=== PATIENT | female | born 1965 | race Caucasian/White ===

== ENCOUNTER 2017-08-17 10:30 | Inpatient (IN) | payer OTHER ==
[~2017-08-17] VITALS: Ht 167.6 cm; Wt 75.0 kg
[~2017-08-17 10:30] MED LIST: CINN500T PO; FLAXOIL2 PO; GLUCTAB7 PO; OMEGCAP2 PO
[2017-08-17 11:30] LABS: BASO % 0.4 %; BASO ABS # 0.03 K/uL (0-0.2); COMPLETE YES; EOS % 1.7 %; HEMATOCRIT 43.3 % (37-47); IG% 0.2 %; LYMPH % 13.4 %; LYMPH ABS # 1.14 K/uL (1.2-3.4); MEAN CELL VOLUME 99.8 fL (80-100); MEAN CORPUSCULAR HEMOGLOBIN 33.6 pg (25-34); MEAN CORPUSCULAR HGB CONC 33.7 g/dl (32-36); MEAN PLATELET VOLUME 9.1 fL (7.4-10.4); MONO % 8.5 %; NEUT % 75.8 %; PLATELET COUNT 264 K/uL (130-400); RED BLOOD COUNT 4.34 M/uL (4.2-5.4); WHITE BLOOD COUNT 8.48 K/uL (4.8-10.8)
[2017-08-17] MEDS ORDERED: AMOX875T PO (11:43)
[2017-08-17] MEDS ORDERED: SPIR25TA PO (11:43)
[2017-08-17] MEDS ORDERED: MONT1TAB3 PO (11:43)
[2017-08-17 11:51] LABS: BUN/CREATININE RATIO 18.2 (10-20); CALCIUM 8.7 mg/dl (8.5-10.1); CREATININE 0.73 mg/dl (0.60-1.20); POTASSIUM 4.3 mmol/L (3.5-5.1)
[2017-08-17] MEDS ORDERED: MoRPHine SULFATE 2 MG/ML CARP IV PRN (12:15)
[2017-08-17] MEDS ORDERED: HYDROCODONE/ACETAMOPHEN 5/325MG TAB PO PRN ×2 (12:15)
[2017-08-17] MEDS ORDERED: CLINDAMYCIN IV 900 MG in DEXTROSE 5% 100ML 100 ML IV ONE (12:15)
[2017-08-17] MEDS ORDERED: ONDANSETRON INJ 2 MG/ML 2 ML VIAL IV PRN (12:15)
[2017-08-17] MEDS ORDERED: DEXAMETHASONE SOD INJ 10 MG/ML VIAL IV ONE (12:15)
--- NOTE | 2017-08-17 12:52 | HISTORY & PHYSICAL EXAMINATION ---
DATE OF ADMISSION: 08/17/2017 I have been asked by the [facility] Emergency Room to evaluate this patient with right-sided nasal cellulitis and possible nasal abscess. HISTORY OF PRESENT ILLNESS: The patient is a pleasant 52-year-old female with a 3-day history of a worsening right nasal cellulitis. This initially presented with a bump on the inside of her nose that she picked and she subsequently developed increased pain, redness, and swelling both on the inside and outside of her nose. She presented to her primary care physician, Dr. Ileana Kwok, yesterday and was placed on Augmentin. She was instructed to come to her office today if her symptoms did not improve. In fact, they worsened and she presented to her office, who stated that she needed to come to the Emergency Room. I have been asked to evaluate this patient and see whether or not she has an abscess. The patient has no prior history of multiple abscesses. ALLERGIES: BACTRIM. HOME MEDICATIONS: Augmentin, spironolactone, montelukast, Pataday, and Restasis. PAST MEDICAL HISTORY: 1. Allergic rhinitis. 2. Sjogren syndrome. 3. Hypertension. PAST SURGICAL HISTORY: 1. Status post right hand surgery. 2. Status post wisdom tooth extraction. FAMILY HISTORY: Noncontributory. No bleeding disorders or malignant hyperthermia. SOCIAL HISTORY: The patient is and has 2 children. 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 She is a nonsmoker. She drinks alcohol socially. There is no illicit drug use. REVIEW OF SYSTEMS: The patient has severe right nasal pain, which is worsening. She has some increased congestion and nasal secretions. She denies any fevers, chills, night sweats, or unexplained weight loss. She denies any lightheadedness, shortness of breath or chest pain. PHYSICAL EXAMINATION: GENERAL: This is a middle-aged white female, who has obvious erythema overlying her external nose on the right hand side with some mild right periorbital erythema and swelling. HEENT: External auditory canals and tympanic membranes are clear bilaterally. Extraocular movements are intact. Pupils are equal, round and reactive to light and accommodation. Intranasally, the patient has an exquisitely tender right nasal sidewall and there is a mild bulge intranasally as well as externally. Oral cavity and oropharyngeal examination reveals no mucosal lesions or masses. There is no trismus. NECK: Reveals no lymphadenopathy, thyroid nodularity or masses. NEUROLOGIC: Cranial nerves II through XII are grossly intact. LABORATORY EXAMINATION: Shows a normal white blood cell count of 8.48. The rest of her CBC and chemistry profile was unremarkable. After verbally obtaining informed consent, the right nasal cavity was sterilized with alcohol wipe. An 18-gauge needle on a 3-mL syringe was used to try to aspirate any potential abscess in the right nasal sidewall. There is no pus encountered. IMPRESSION AND RECOMMENDATIONS: A 52-year-old female with moderately severe right nasal cellulitis. I think it is warranted to admit this patient for IV antibiotics and IV steroids given her lack of improvement on oral antibiotics. I have placed her on clindamycin 900 mg IV q. 8 hours and Decadron 10 mg IV q. 8 hours. We will monitor her closely. Warm compresses were ordered. If the patient worsens, then I might get a CT scan with IV contrast to rule out any abscess that I may have missed. I do believe that she will improve on IV therapy. The risk of C. diff colitis was discussed with the patient. She is to let us know if she develops any severe crampy and/or bloody diarrhea.
[2017-08-17 13:15] VITALS: BP 141/89; PULSE 73; TEMP 36.5; O2SAT 98; Ht 167.6 cm; Wt 75.0 kg
[2017-08-17] MEDS: LACTATED RINGER'S 1000ML 1,000 ML IV SCH (13:59)
[2017-08-17] MEDS ORDERED: INFLUENZA ADMINISTRATION CHARGE ONE (15:00)
[2017-08-17] MEDS ORDERED: INFLUENZA VIRUS QUAD VACCINE 0.5 ML SYR IM. ONE (15:00)
[2017-08-17 15:15] VITALS: BP 125/84; PULSE 80; TEMP 36.6
[2017-08-17 19:30] VITALS: O2SAT 95
[2017-08-17] MEDS: SPIRONOLACTONE 25 MG TAB PO SCH (21:33)
[2017-08-17] MEDS: CLINDAMYCIN IV 900 MG in DEXTROSE 5% 100ML 100 ML IV SCH (21:35)
[2017-08-17] MEDS: DEXAMETHASONE INJ 10 MG in SYRINGE 0 ML IV SCH (21:36)
[2017-08-17 23:06] VITALS: BP 123/82; PULSE 71; TEMP 36.7
[2017-08-18] MEDS: LACTATED RINGER'S 1000ML 1,000 ML IV SCH (00:12)
[2017-08-18] MEDS: CLINDAMYCIN IV 900 MG in DEXTROSE 5% 100ML 100 ML IV SCH (05:50)
[2017-08-18] MEDS: DEXAMETHASONE INJ 10 MG in SYRINGE 0 ML IV SCH (05:50)
[2017-08-18 07:11] VITALS: BP 115/74; PULSE 68; TEMP 36.7
--- NOTE | 2017-08-18 08:35 | Discharge Instructions ---
Discharge Instructions Date of Service Aug 18, 2017. Admission Reason for Admission: Cellulitis Of The Nose Discharge Discharge Diagnosis / Problem: SAME Discharge Goals Goal(s): Therapeutic intervention Activity Recommendations Activity Limitations: resume your previous activity . Current Hospital Diet Patient's current hospital diet: Regular Diet Discharge Diet Recommended Diet: Regular Diet Pending Studies Studies pending at discharge: no Medical Emergencies . Who to Call and When: Medical Emergencies: If at any time you feel your situation is an emergency, please call 911 immediately. . Non-Emergent Contact Non-Emergency issues call your: Surgeon . . "Provider Documentation" section prepared by Chris Kc. . VTE Core Measure Inpt VTE Proph given/why not?: SCD's
[2017-08-18] MEDS: SPIRONOLACTONE 25 MG TAB PO SCH (08:51)
[2017-08-18 08:53] VITALS: BP 115/74; PULSE 68; TEMP 36.7; O2SAT 95
[2017-08-18] MEDS ORDERED: MONTELUKAST SOD 10 MG TAB PO SCH (09:00)
--- NOTE | 2017-08-18 09:00 | ENT PROGRESS NOTE ---
DATE: 08/18/2017 SUBJECTIVE: The patient reports that she is "75%" better after being on IV clindamycin and Decadron. She has much less pain in her nasal region. She has near resolution of her right periorbital and facial swelling. OBJECTIVE: The patient is afebrile and vital signs are stable. On examination, she has less erythema overlying her right nasal dorsum and tip. There is less tenderness to palpation. Intranasally, there is still some tenderness, but there is less swelling on the lateral nasal sidewall compared to yesterday. There is no fluctuance identified. ASSESSMENT AND PLAN: A 52-year-old female with nasal cellulitis, which has improved on IV clindamycin and Decadron. She has been afebrile throughout her hospital course. I will discharge her to home on clindamycin 300 mg 4 times daily for 10 days as well as a prednisone taper 30 mg twice daily for 2 days, then 20 mg twice daily for 2 days, then 10 mg twice daily for 2 days, and then 10 mg daily for 2 days. I would like her to call my office tomorrow for followup appointment within 1-2 weeks.
--- NOTE | 2017-08-18 10:30 | DISCHARGE SUMMARY ---
ADMISSION DIAGNOSIS: Nasal cellulitis. DISCHARGE DIAGNOSIS: Same. HOSPITAL COURSE: The patient is a 52-year-old female who I admitted yesterday from the Emergency Room for nasal cellulitis that progressed despite being on Augmentin 875 mg twice daily. She was given IV clindamycin and IV Decadron and clinically improved over 24 hours. Throughout her hospital stay, she was afebrile. On hospital day #2, she stated that she was "75%" better and her examination was markedly improved. She was discharged to home on clindamycin 300 mg 4 times daily for 10 days, prednisone 30 mg p.o. b.i.d. for 2 days followed by 20 mg p.o. b.i.d. for 2 days followed by 10 mg p.o. b.i.d. for 2 days followed by 10 mg daily for 2 days. I gave her a prescription for fluconazole 150 mg one time and may repeat in 3 days if necessary for vaginal yeast infections which she tends to get on longterm antibiotic therapy. She is to call my office if she has any worsening clinical symptomatology. She should not take her previously prescribed Augmentin but only take the clindamycin that I prescribed. The potential side effect of Clostridium difficile colitis was discussed with the patient and she should call my office if she develops any severe, crampy, and/or bloody diarrhea.
--- NOTE | 2017-08-21 13:59 | EMERGENCY ROOM VISIT NOTE ---
History First contact with patient: 10:59 Chief Complaint: FACIAL PAIN/INJURY Stated Complaint: CELLULITIS OF THE NOSE History of Present Illness The patient is a 52 year old white female who presents to the Emergency Room with complaints of right-sided nasal pain, redness, and swelling. Symptoms started on . She felt a tender nodule inside her nose. She states she did pick at it. Yesterday the pain and redness increased. She was seen by her PCP and was placed on Augmentin. She was told to come back if her symptoms. This morning she noticed puffiness along her right cheek and increased redness on her nose. She was seen by her PCP again and sent to the ED for further evaluation. Patient denies any prior history of nasal abscess. No change in vision at this time. No fevers or chills. She has had 3 doses of Augmentin without improvement. She denies any nasal drainage. Review of Systems REVIEW OF SYSTEM: HEENT: No dizziness, visual problems, hearing loss, or tinnitus. There is no difficulty swallowing and no oral lesions are present. PULMONARY: No cough, shortness of breath, sputum production or hemoptysis. CARDIOVASCULAR: No chest pain, palpitations, shortness of breath or peripheral edema. GASTROINTESTINAL: No diarrhea, constipation, nausea, vomiting, or abdominal pain. GENITOURINARY: No dysuria, frequency, urgency or nocturia. NEUROLOGIC: No weakness, muscle tenderness, epilepsy or history of neurological problems. MUSCULOSKELETAL: No history of joint tenderness/swelling. No history of arthritis or arthralgias. SKIN: No rashes or lesions. PSYCHIATRIC: No history of depression or mental illness. ENDOCRINE: No history of diabetes, thyroid disorders, or abnormal hair growth. Past Medical/Surgical History Medical Problems: (1) Asthma (2) Kidney stone (3) Nose cellulitis (4) Nose cellulitis Sjogren syndrome. Hypertension. PAST SURGICAL HISTORY: right hand surgery. wisdom tooth extraction. Family History FAMILY HISTORY: Noncontributory. Social History Smoking Status: Never Smoker Smokeless Tobacco Use: No Alcohol Use: occasionally Drug Use: none Marital Status: Housing Status: lives with family Occupation Status: employed Current/Historical Medications Scheduled Cinnamon (Cinnamon), 1 TAB PO DAILY Flaxseed (Linseed) (Flax Oil), 1 DOSE PO DAILY Oyoabqiamvo-Uhsxhyjwjpo-Ype C- (Glucosamine Chondroitin), 1 TAB PO DAILY Montelukast Sodium (Singulair), 10 MG PO DAILY [place]-3 Fatty Acids (Fish Oil), 1 CAP PO DAILY Spironolactone (Aldactone), 25 MG PO BID Allergies Coded Allergies: Sulfamethoxazole w/Trimethoprim (Verified Allergy, Intermediate, nausea, swelling, 08/17/17) Physical Exam Vital Signs Date Time Temp Pulse Resp B/P (MAP) Pulse Ox O2 Delivery O2 Flow Rate FiO2 08/17/17 11:02 36.7 69 16 145/106 97 Room Air Physical Exam Gen.: Well-developed, well-nourished, middle-aged white female, in obvious discomfort. No acute distress. Sitting on a bed. Alert and oriented. Skin:Warm and dry with good turgor. No rashes. No ecchymosis. She has mild edema present over the upper right cheek and lower eyelid. Visible erythema on her nose. Nose is also a little edematous. Nose is very tender to touch. Mild fullness under her right eyelid. The patient is not diaphoretic. No abrasions. HEENT: Normocephalic atraumatic. Eyes PERRLA, EOMI. No conjunctiva or scleral injection. Ears TMs intact bilaterally with good light reflexes. No erythema or bulging. No hemotympanum. Canals are patent. Nares patent bilaterally without turbinate enlargement. Clear nasal drainage. No epistaxis. She has a mass inside the right nares that appears to be an abscess. It is extremely tender to touch. Nose is also red, more so on the right side. Oropharynx without erythema or exudate. Uvula midline, oral mucosa moist. No lesions present. Lymphatics are palpated without anterior or posterior chain enlargement or tenderness. Heart: Heart RRR. No MGR. Peripheral pulses are 2+. Lungs: Lungs are clear to auscultation. No crackles rhonchi or wheezing. Good air movement. The patient is able to take a deep breath. Medical Decision & Procedures Laboratory Results 08/17/17 11:17 Red Blood Count 4.34, Mean Corpuscular Volume 99.8, Mean Corpuscular Hemoglobin 33.6, Mean Corpuscular Hemoglobin Concent 33.7, Mean Platelet Volume 9.1, Neutrophils (%) (Auto) 75.8, Lymphocytes (%) (Auto) 13.4, Monocytes (%) (Auto) 8.5, Eosinophils (%) (Auto) 1.7, Basophils (%) (Auto) 0.4, Neutrophils # (Auto) 6.43, Lymphocytes # (Auto) 1.14, Monocytes # (Auto) 0.72, Eosinophils # (Auto) 0.14, Basophils # (Auto) 0.03 08/17/17 11:17 Test 08/17/17 11:17 White Blood Count 8.48 K/uL (4.8-10.8) Red Blood Count 4.34 M/uL (4.2-5.4) Hemoglobin 14.6 g/dL (12.0-16.0) Hematocrit 43.3 % (37-47) Mean Corpuscular Volume 99.8 fL (80-100) Mean Corpuscular Hemoglobin 33.6 pg (25-34) Mean Corpuscular Hemoglobin Concent 33.7 g/dl (32-36) Platelet Count 264 K/uL (130-400) Mean Platelet Volume 9.1 fL (7.4-10.4) Neutrophils (%) (Auto) 75.8 % Lymphocytes (%) (Auto) 13.4 % Monocytes (%) (Auto) 8.5 % Eosinophils (%) (Auto) 1.7 % Basophils (%) (Auto) 0.4 % Neutrophils # (Auto) 6.43 K/uL (1.4-6.5) Lymphocytes # (Auto) 1.14 K/uL (1.2-3.4) Monocytes # (Auto) 0.72 K/uL (0.11-0.59) Eosinophils # (Auto) 0.14 K/uL (0-0.5) Basophils # (Auto) 0.03 K/uL (0-0.2) RDW Standard Deviation 47.6 fL (36.4-46.3) RDW Coefficient of Variation 13.0 % (11.5-14.5) Immature Granulocyte % (Auto) 0.2 % Immature Granulocyte # (Auto) 0.02 K/uL (0.00-0.02) Anion Gap 6.0 mmol/L (3-11) Est Creatinine Clear Calc Drug Dose 93.3 ml/min Estimated GFR () 109.7 Estimated GFR (Non- 94.7 BUN/Creatinine Ratio 18.2 (10-20) Calcium Level 8.7 mg/dl (8.5-10.1) Hepatitis C Antibody Screen NEG (NEG) CBC and PRP were obtained. They are unremarkable. Medications Administered Medications (Trade) Dose Ordered Sig/[place] Route Start Time Stop Time Status Last Admin Dose Admin Clindamycin Phosphate 900 mg/ Dextrose 106 ml @ 100 mls/hr NOW ONCE IV 08/17/17 12:15 08/17/17 13:18 DC 08/17/17 12:30 100 MLS/HR Dexamethasone Sodium Phosphate (Decadron Inj) 10 mg NOW ONCE IV 08/17/17 12:15 08/17/17 12:16 DC 08/17/17 12:20 10 MG Acetaminophen/ Hydrocodone Bitart ([place] 5/325 Tab) 1 tab Q4HWA PRN PO 08/17/17 12:15 08/18/17 09:46 DC 08/18/17 00:27 1 TAB Acetaminophen/ Hydrocodone Bitart ([place] 5/325 Tab) 2 tab Q4HWA PRN PO 08/17/17 12:15 08/18/17 09:46 DC 08/17/17 13:59 2 TAB Clindamycin 900 mg IV, Decadron 10 mg IV ED Course Patient and her were educated regarding today's findings. Conservative care measures were discussed. IV was established. Labs were obtained. I did contact Dr. Kc from ENT to discuss imaging. He elected to come into the ED and evaluate the patient himself before ordering any imaging. Please see his dictation for final management. He did admit the patient for observation. She has failed outpatient oral antibiotic treatment. She was started on clindamycin 900 mg IV and Decadron 10 mg IV per his request. She remained stable while in the ED. Medical Decision Possibility of nasal abscess, cellulitis, periorbital cellulitis, and contact dermatitis were considered among others. Impression Primary Impression: Nose cellulitis Departure Information Dispostion Admitted as an inpatient Condition FAIR Referrals Ileana Kwok M.D. (PCP) Forms HOME CARE DOCUMENTATION FORM, IMPORTANT VISIT INFORMATION Patient Instructions My [facility]
== END 2017-08-18 09:40 | disposition home or self-care (01) | DRG 156 ==
LOC: C.EDB 10:32 → C.MSW 12:22 → ENRESERV 12:45
DX: J34.0 Abscess, furuncle and carbuncle of nose (principal); I10 Essential (primary) hypertension; J30.9 Allergic rhinitis, unspecified; M35.00 Sjogren syndrome, unspecified; Z79.899 Other long term (current) drug therapy